=== PATIENT | female | born 1955 | race Two or more races ===

== ENCOUNTER 2019-10-10 13:19 | Inpatient (IN) | payer MEDICAID, OTHER ==
[~2019-10-10] VITALS: Ht 160 cm; Wt 79.4 kg
[2019-10-10] MEDS ORDERED: SODIUM CHLORIDE 0.9% 1,000 ML IVB ONE (15:34)
[2019-10-10] MEDS ORDERED: ONDANSETRON HCL 4 MG/2 ML VIAL IV ONE (16:00)
[2019-10-10 16:12] LABS: Basophils # (auto) 0 uL; Basophils % (auto) 0.5 % (0.0-2.0); Eosinophils # (auto) 0 uL; Eosinophils % (auto) 0.1 % (0.0-7.0); Hematocrit 48.5 % (36.0-46.0); Hemoglobin 16.4 g/dL (12.2-16.2); Lymphocytes # (auto) 1.1 uL; Lymphocytes % (auto) 12.7 % (10.0-50.0); Mean Corpuscular Hemoglobin 29.4 pg (28.0-32.0); Mean Corpuscular Hgb Conc. 33.8 g/dL (32.0-36.0); Mean Corpuscular Volume 87.1 fL (80.0-100.0); Monocytes # (auto) 0.7 uL; Monocytes % (auto) 7.8 % (0.0-12.0); Neutrophils # (auto) 6.7 uL; Neutrophils % (auto) 78.9 % (37.0-80.0); Nucleated Red Blood Cells % 0.2 %; Platelet Count (auto) 107 10^3/uL (140-450); Red Blood Cells 5.56 10^6/uL (4.0-5.20); Red Cell Distribution Width 14.5 % (11.8-14.3); White Blood Cell 8.4 10^3/uL (4.4-10.8)
[2019-10-10 16:23] LABS: Chloride 103 mmol/L (98-107); Salicylate < 1.7 mg/dL (2.8-20.0); Sodium 141 mmol/L (136-145)
[2019-10-10 16:31] LABS: Acetaminophen < 2.0 ug/mL (10-30); Alanine Aminotransferase 51 U/L (13-56); Albumin 4.3 g/dL (3.4-5.0); Alkaline Phosphatase 91 U/L (45-117); Anion Gap 8 (5-15); Aspartate Aminotransferase 92 U/L (15-37); Bilirubin, Total 0.6 mg/dL (0.2-1.0); Blood Alcohol < 3.0 mg/dL (0-5); Blood Urea Nitrogen 10 mg/dL (7-18); Calcium 9.2 mg/dL (8.5-10.1); Carbon Dioxide 30 mmol/L (21-32); GFR African American 25 mL/min; GFR Non-African American 21 mL/min; Glucose 179 mg/dL (74-106); Total Protein 7.8 g/dL (6.4-8.2)
[2019-10-10 16:40] LABS: Potassium 2.7 mmol/L (3.5-5.1)
[2019-10-10] MEDS ORDERED: POTASSIUM CHL 20MEQ/100ML 100 ML IV ONE (19:15)
[2019-10-10] MEDS ORDERED: LORazepam 2MG/ML-1ML VIAL IV PRN (19:45)
[2019-10-10] MEDS ORDERED: ACETAMINOPHEN 500 MG TAB PO PRN (19:45)
[2019-10-10] MEDS ORDERED: IPRATROPIUM BROM 0.5 MG/2.5ML INH SOL NEB PRN (19:45)
[2019-10-10] MEDS ORDERED: NITROGLYCERIN 0.4 MG SL TAB SL PRN (19:45)
[2019-10-10] MEDS ORDERED: ALBUTEROL SULF 2.5 MG/0.5ML(0.5%) NEB SOLN NEB PRN (19:45)
[2019-10-10] MEDS ORDERED: MORPHINE SULF INJ 2 MG/ML SYRINGE 1ML IV PRN ×2 (19:45)
[2019-10-10] MEDS: FOLIC ACID 1 MG, MULTIPLE VITAMIN 10 ML, MAGNESIUM SULF SDV 50% 8 MEQ, THIAMINE INJ 100... INJ SCH ×5 (20:51)
[2019-10-10] MEDS: FAMOTIDINE (10MG/ML) 2ML VL IV SCH (20:51)
[2019-10-10] MEDS: chlordiazePOXIDE HCL 25 MG CAP PO SCH (20:51)
[2019-10-10 22:00] VITALS: BP 109/57
[2019-10-11] MEDS: chlordiazePOXIDE HCL 25 MG CAP PO SCH ×4 (00:29→18:36)
[2019-10-11 01:30] VITALS: BP 109/57
[2019-10-11 02:11] LABS: Amphetamine Screen, Urine NEGATIVE (NEGATIVE); Barbiturate Scree,Urine NEGATIVE (NEGATIVE); Benzodiazephine Screen, Urine NEGATIVE (NEGATIVE); Cannabinoid Screen, Urine POSITIVE (NEGATIVE); Cocaine Screen, Urine NEGATIVE (NEGATIVE); Opiate Scree,Urine NEGATIVE (NEGATIVE); Phencyclidine Screen, Urine NEGATIVE (NEGATIVE)
[2019-10-11] MEDS: ONDANSETRON HCL 4 MG/2 ML VIAL IV PRN ×2 (03:22→11:04)
[2019-10-11 05:31] VITALS: BP 110/49
[2019-10-11 06:17] LABS: BUN/Creatinine Ratio 5.1; Calcium 7.7 mg/dL (8.5-10.1); Magnesium 2.8 mg/dL (1.6-2.6)
[2019-10-11 06:19] LABS: Potassium 2.7 mmol/L (3.5-5.1)
[2019-10-11] MEDS ORDERED: POTASSIUM CHL 20 Meq TABLET PO ONE (06:45)
[2019-10-11 09:00] VITALS: BP 106/60
[2019-10-11] MEDS ORDERED: SOD CHL 0.9%/ KCL 40MEQ 1,000 ML IV ONE (10:15)
[2019-10-11] MEDS ORDERED: POTASSIUM EFFERVESENT TAB 25 MEQ PO ONE (10:15)
[2019-10-11] MEDS: FAMOTIDINE (10MG/ML) 2ML VL IV SCH (11:03)
[2019-10-11] MEDS: FOLIC ACID 1 MG, MULTIPLE VITAMIN 10 ML, MAGNESIUM SULF SDV 50% 8 MEQ, THIAMINE INJ 100... INJ SCH ×5 (12:00)
[2019-10-11 13:00] VITALS: BP 105/59
[2019-10-11] MEDS ORDERED: SODIUM CHLORIDE 0.9% 1,000 ML IV SCH (15:30)
[2019-10-11 16:09] LABS: Potassium 4.2 mmol/L (3.5-5.1)
[2019-10-11 16:11] LABS: BUN/Creatinine Ratio 5.2
[2019-10-11 17:00] VITALS: BP 112/75
[2019-10-11] MEDS: SOD CHL 0.45% 1,000 ML IV SCH (18:37)
[2019-10-11 22:05] VITALS: BP 112/66
[2019-10-12] MEDS: chlordiazePOXIDE HCL 25 MG CAP PO SCH ×4 (05:23→16:59)
[2019-10-12 05:31] VITALS: BP 104/67
[2019-10-12 06:29] LABS: Basophils # (auto) 0 uL; Basophils % (auto) 0.5 % (0.0-2.0); Eosinophils # (auto) 0 uL; Eosinophils % (auto) 1.2 % (0.0-7.0); Hematocrit 35.3 % (36.0-46.0); Hemoglobin 11.9 g/dL (12.2-16.2); Lymphocytes # (auto) 1.2 uL; Lymphocytes % (auto) 35.9 % (10.0-50.0); Mean Corpuscular Hemoglobin 29.5 pg (28.0-32.0); Mean Corpuscular Hgb Conc. 33.7 g/dL (32.0-36.0); Mean Corpuscular Volume 87.5 fL (80.0-100.0); Monocytes # (auto) 0.3 uL; Monocytes % (auto) 10.1 % (0.0-12.0); Neutrophils # (auto) 1.7 uL; Neutrophils % (auto) 52.3 % (37.0-80.0); Nucleated Red Blood Cells % 0.1 %; Platelet Count (auto) 92 10^3/uL (140-450); Red Blood Cells 4.03 10^6/uL (4.0-5.20); Red Cell Distribution Width 14.5 % (11.8-14.3); White Blood Cell 3.3 10^3/uL (4.4-10.8)
[2019-10-12 06:58] LABS: Potassium 3.2 mmol/L (3.5-5.1)
[2019-10-12 07:11] LABS: Albumin 2.6 g/dL (3.4-5.0); BUN/Creatinine Ratio 5.7; Bilirubin, Total 0.3 mg/dL (0.2-1.0); Calcium 7.7 mg/dL (8.5-10.1); Magnesium 2.4 mg/dL (1.6-2.6); Total Protein 5.2 g/dL (6.4-8.2)
[2019-10-12 09:00] VITALS: BP 116/76
[2019-10-12] MEDS: FAMOTIDINE (10MG/ML) 2ML VL IV SCH (09:22)
[2019-10-12 09:24] LABS: Hepatitis B Surface Antibody Negative
[2019-10-12] MEDS ORDERED: POTASSIUM CHL 20 Meq TABLET PO ONE (09:30)
[2019-10-12 09:54] LABS: Hepatitis A Total Antibody Positive
[2019-10-12 11:33] LABS: Hepatitis B Core Total AB Negative; Hepatitis B Surface Antigen Negative (Negative); Hepatitis C Antibody Negative (Negative)
[2019-10-12] MEDS: FOLIC ACID 1 MG, MULTIPLE VITAMIN 10 ML, MAGNESIUM SULF SDV 50% 8 MEQ, THIAMINE INJ 100... INJ SCH ×5 (12:08)
[2019-10-12 13:00] VITALS: BP 120/70
[2019-10-12] MEDS: SOD CHL 0.45% 1,000 ML IV SCH (13:45)
[2019-10-12] MEDS ORDERED: SERTRALINE HCL 50 MG TAB PO ONE (15:45)
[2019-10-12] MEDS: HYDROcodone-ACET 5/325MG TAB PO PRN (18:42)
[2019-10-12 22:00] VITALS: BP 116/77
[2019-10-13 05:23] VITALS: BP 130/88
[2019-10-13] MEDS: chlordiazePOXIDE HCL 25 MG CAP PO SCH ×4 (05:37→17:57)
[2019-10-13] MEDS: LEVOTHYROXINE SODIUM 25 MCG TAB PO SCH (05:37)
[2019-10-13 06:00] LABS: Basophils # (auto) 0 uL; Basophils % (auto) 0.6 % (0.0-2.0); Eosinophils # (auto) 0.1 uL; Eosinophils % (auto) 2.9 % (0.0-7.0); Hematocrit 37.1 % (36.0-46.0); Hemoglobin 12.3 g/dL (12.2-16.2); Lymphocytes # (auto) 1.4 uL; Lymphocytes % (auto) 40.2 % (10.0-50.0); Mean Corpuscular Hemoglobin 29.1 pg (28.0-32.0); Mean Corpuscular Hgb Conc. 33.2 g/dL (32.0-36.0); Mean Corpuscular Volume 87.4 fL (80.0-100.0); Monocytes # (auto) 0.3 uL; Monocytes % (auto) 10.1 % (0.0-12.0); Neutrophils # (auto) 1.6 uL; Neutrophils % (auto) 46.2 % (37.0-80.0); Nucleated Red Blood Cells % 0.2 %; Platelet Count (auto) 106 10^3/uL (140-450); Red Blood Cells 4.24 10^6/uL (4.0-5.20); Red Cell Distribution Width 14.9 % (11.8-14.3); White Blood Cell 3.4 10^3/uL (4.4-10.8)
[2019-10-13 06:22] LABS: Albumin 2.6 g/dL (3.4-5.0); Calcium 7.7 mg/dL (8.5-10.1); Potassium 3.7 mmol/L (3.5-5.1)
[2019-10-13 06:26] LABS: BUN/Creatinine Ratio 7.4; Bilirubin, Total 0.3 mg/dL (0.2-1.0); Total Protein 5.4 g/dL (6.4-8.2)
[2019-10-13 09:03] VITALS: BP 138/78
[2019-10-13] MEDS: SERTRALINE HCL 50 MG TAB PO SCH (10:14)
[2019-10-13] MEDS: FAMOTIDINE (10MG/ML) 2ML VL IV SCH (10:14)
[2019-10-13] MEDS: SOD CHL 0.45% 1,000 ML IV SCH (10:15)
[2019-10-13] MEDS ORDERED: SERT25TA84 PO (11:00)
[2019-10-13] MEDS ORDERED: LEV25T PO (11:00)
[2019-10-13] MEDS: FOLIC ACID 1 MG, MULTIPLE VITAMIN 10 ML, MAGNESIUM SULF SDV 50% 8 MEQ, THIAMINE INJ 100... INJ SCH ×5 (12:00)
[2019-10-13 13:00] VITALS: BP 132/91
[2019-10-13 17:15] VITALS: BP 116/85
[2019-10-13 21:56] VITALS: BP 121/71
[2019-10-13 22:21] VITALS: BP 121/71
[2019-10-14] VITALS (7 sets, daily range): BP systolic 114–126; BP diastolic 74–86
[2019-10-14] MEDS: SOD CHL 0.45% 1,000 ML IV SCH (05:45)
[2019-10-14] MEDS: chlordiazePOXIDE HCL 25 MG CAP PO SCH ×5 (05:57→23:47)
[2019-10-14] MEDS: LEVOTHYROXINE SODIUM 25 MCG TAB PO SCH (06:48)
[2019-10-14] MEDS: FAMOTIDINE (10MG/ML) 2ML VL IV SCH (09:48)
[2019-10-14] MEDS: SERTRALINE HCL 50 MG TAB PO SCH (09:49)
[2019-10-14] MEDS: ONDANSETRON HCL 4 MG/2 ML VIAL IV PRN (09:49)
[2019-10-14] MEDS: HYDROcodone-ACET 5/325MG TAB PO PRN (09:49)
[2019-10-14] MEDS ORDERED: LORazepam 2MG/ML-1ML VIAL IV PRN (12:00)
[2019-10-14] MEDS: FOLIC ACID 1 MG, MULTIPLE VITAMIN 10 ML, MAGNESIUM SULF SDV 50% 8 MEQ, THIAMINE INJ 100... INJ SCH ×5 (12:31)
[2019-10-14 15:49] LABS: Urine Bacteria MOD /hpf (None Seen); Urine Blood Negative /uL (Negative); Urine Mucus FEW (None Seen); Urine Specific Gravity 1.016 (1.001-1.035); Urine WBC 21 /hpf (0 - 5)
[2019-10-14] MEDS: SODIUM CHLORIDE 0.9% 1,000 ML IV SCH (22:52)
[2019-10-15 05:00] VITALS: BP 125/81
[2019-10-15 05:27] LABS: Basophils # (auto) 0 uL; Basophils % (auto) 0.9 % (0.0-2.0); Eosinophils # (auto) 0.1 uL; Eosinophils % (auto) 1.9 % (0.0-7.0); Hematocrit 39.7 % (36.0-46.0); Hemoglobin 13.1 g/dL (12.2-16.2); Lymphocytes # (auto) 1.5 uL; Lymphocytes % (auto) 41.9 % (10.0-50.0); Mean Corpuscular Hemoglobin 29.2 pg (28.0-32.0); Mean Corpuscular Hgb Conc. 33.1 g/dL (32.0-36.0); Mean Corpuscular Volume 88.4 fL (80.0-100.0); Monocytes # (auto) 0.6 uL; Monocytes % (auto) 16.2 % (0.0-12.0); Neutrophils # (auto) 1.4 uL; Neutrophils % (auto) 39.1 % (37.0-80.0); Nucleated Red Blood Cells % 0.3 %; Platelet Count (auto) 171 10^3/uL (140-450); Red Blood Cells 4.49 10^6/uL (4.0-5.20); Red Cell Distribution Width 15.1 % (11.8-14.3); White Blood Cell 3.5 10^3/uL (4.4-10.8)
[2019-10-15] MEDS: SODIUM CHLORIDE 0.9% 1,000 ML IV SCH ×2 (05:28→16:16)
[2019-10-15 05:43] LABS: Albumin 2.7 g/dL (3.4-5.0); Calcium 8.1 mg/dL (8.5-10.1); Magnesium 2.2 mg/dL (1.6-2.6); Potassium 3.9 mmol/L (3.5-5.1)
[2019-10-15 05:46] LABS: BUN/Creatinine Ratio 16.4; Bilirubin, Total 0.2 mg/dL (0.2-1.0); Phosphorus 3.5 mg/dL (2.5-4.90)
[2019-10-15] MEDS: chlordiazePOXIDE HCL 25 MG CAP PO SCH ×4 (06:09→17:51)
[2019-10-15] MEDS: LEVOTHYROXINE SODIUM 25 MCG TAB PO SCH (06:09)
[2019-10-15 09:00] VITALS: BP 133/77
[2019-10-15] MEDS: ENOXAPARIN SOD 40 MG/0.4 ML SYRINGE SC SCH (09:25)
[2019-10-15] MEDS: FAMOTIDINE (10MG/ML) 2ML VL IV SCH (09:25)
[2019-10-15] MEDS: SERTRALINE HCL 50 MG TAB PO SCH (09:26)
[2019-10-15] MEDS: FOLIC ACID 1 MG, MULTIPLE VITAMIN 10 ML, MAGNESIUM SULF SDV 50% 8 MEQ, THIAMINE INJ 100... INJ SCH ×5 (16:16)
[2019-10-15 17:08] VITALS: BP 110/73
[2019-10-15 20:00] VITALS: BP 119/73
[2019-10-15 21:49] VITALS: BP 119/73
[2019-10-16] MEDS: SODIUM CHLORIDE 0.9% 1,000 ML IV SCH ×2 (03:00→13:00)
[2019-10-16 05:14] VITALS: BP 133/85
[2019-10-16] MEDS: chlordiazePOXIDE HCL 25 MG CAP PO SCH ×3 (05:53→11:30)
[2019-10-16] MEDS: LEVOTHYROXINE SODIUM 25 MCG TAB PO SCH (06:53)
[2019-10-16] MEDS: FAMOTIDINE (10MG/ML) 2ML VL IV SCH (09:03)
[2019-10-16] MEDS: ENOXAPARIN SOD 40 MG/0.4 ML SYRINGE SC SCH (09:03)
[2019-10-16] MEDS: SERTRALINE HCL 50 MG TAB PO SCH (09:04)
[2019-10-16 09:28] VITALS: BP 135/89
[2019-10-16] MEDS: FOLIC ACID 1 MG, MULTIPLE VITAMIN 10 ML, MAGNESIUM SULF SDV 50% 8 MEQ, THIAMINE INJ 100... INJ SCH ×5 (12:00)
[2019-10-16 12:43] VITALS: BP 131/83
== END 2019-10-16 16:03 | disposition home or self-care (01) | DRG 469 ==
LOC: ER 13:19 → TELE 13:20 → TELE-WESTW 21:41
PROVIDERS: ADMIT Nurse Practitioner Acute Care; ATTEND Internal Medicine Nephrology
DX: N17.0 Acute kidney failure with tubular necrosis (principal); F10.231 Alcohol dependence with withdrawal delirium; D69.6 Thrombocytopenia, unspecified; R45.851 Suicidal ideations; E86.0 Dehydration; N18.3 Chronic kidney disease, stage 3 (moderate); E87.6 Hypokalemia; F32.9 Major depressive disorder, single episode, unspecified; E03.9 Hypothyroidism, unspecified; R73.03 Prediabetes; I12.9 Hypertensive chronic kidney disease with stage 1 through stage 4 chronic kidney disease, or unspecified chronic kidney disease; F12.10 Cannabis abuse, uncomplicated; F17.200 Nicotine dependence, unspecified, uncomplicated; Z90.49 Acquired absence of other specified parts of digestive tract; Z90.710 Acquired absence of both cervix and uterus; Z82.49 Family history of ischemic heart disease and other diseases of the circulatory system
CPT/HCPCS: 36415; 70450; 80048; 80053; 80061; 80307; 80320; 80329; 81001; 82962; 83036; 83735; 84100; 84439; 84443; 85025; 86704; 86706; 86708; 86803; 87045; 87340; 87427; 93005; 96361; 96365; 96375; 97116; 97530; G0378; J2405; J3480; J3490

== ENCOUNTER 2020-12-18 12:30 | Inpatient (IN) | payer OTHER, MEDICAID ==
[~2020-12-18] VITALS: Ht 160 cm; Wt 82.4 kg
[~2020-12-18 12:30] MED LIST: LEV25T PO; SERT25TA84 PO
[2020-12-18] MEDS ORDERED: SODIUM CHLORIDE 0.9% 1,000 ML IVB ONE (13:15)
[2020-12-18] MEDS ORDERED: ONDANSETRON HCL 4 MG/2 ML VIAL IV ONE ×2 (13:15→16:00)
[2020-12-18] MEDS ORDERED: TETANUS-DIPTH-ACEL PERTUSSIS 0.5ML SYR Tdap IM ONE (14:45)
[2020-12-18 14:51] LABS: Hematocrit 42.2 % (36.0-46.0); Hemoglobin 14.2 g/dL (12.2-16.2); Mean Corpuscular Hgb Conc. 33.6 g/dL (32.0-36.0); Mean Corpuscular Volume 86.3 fL (80.0-100.0); Platelet Count (auto) 207 10^3/uL (140-450); Red Blood Cells 4.89 10^6/uL (4.0-5.20); Red Cell Distribution Width 13.8 % (11.8-14.3); White Blood Cell 4.3 10^3/uL (4.4-10.8)
[2020-12-18 14:59] LABS: Basophils % (manual) 0 (0.0-2.0); Blast Cells 0; Eosinophils % (manual) 0 (0-7); Myelocytes % 0; Promyelocytes % 0; Reactive Lymphocytes 0
[2020-12-18 15:00] LABS: Alanine Aminotransferase 29 U/L (13-56); Albumin 2.1 g/dL (3.4-5.0); Anion Gap 14 (5-15); Aspartate Aminotransferase 31 U/L (15-37); Blood Urea Nitrogen 41 mg/dL (7-18); Calcium 7.7 mg/dL (8.5-10.1); Carbon Dioxide 21 mmol/L (21-32); Chloride 100 mmol/L (98-107); GFR African American 71 mL/min; GFR Non-African American 59 mL/min; Glucose 153 mg/dL (74-106); Magnesium 2.3 mg/dL (1.6-2.6); Potassium 3.6 mmol/L (3.5-5.1); Sodium 135 mmol/L (136-145)
[2020-12-18 15:03] LABS: Alkaline Phosphatase 62 U/L (45-117); Bilirubin, Total 0.5 mg/dL (0.2-1.0); Total Protein 5.9 g/dL (6.4-8.2)
[2020-12-18 15:09] LABS: Blood Alcohol < 3.0 mg/dL (0-5); Lipase 1278 U/L (73-393)
[2020-12-18 15:40] LABS: Band Neutrophils % (manual) 12; Lymphocytes % (manual) 26 (10.0-50.0); Metamyelocytes % 1; Monocytes % (manual) 18 (0-12)
[2020-12-18] MEDS ORDERED: MORPHINE SULF INJ 2 MG/ML SYRINGE 1ML IV ONE (16:00)
[2020-12-18] MEDS ORDERED: MORPHINE SULF INJ 2 MG/ML SYRINGE 1ML IV PRN (18:00)
[2020-12-18] MEDS: FOLIC ACID 1 MG, MULTIPLE VITAMIN 10 ML, MAGNESIUM SULF SDV 50% 8 MEQ, THIAMINE INJ 100... INJ SCH ×5 (18:00)
[2020-12-18] MEDS ORDERED: NITROGLYCERIN 0.4 MG SL TAB SL PRN (18:00)
[2020-12-18] MEDS ORDERED: ACETAMINOPHEN 500 MG TAB PO PRN (18:00)
[2020-12-18 20:10] VITALS: BP 110/62
[2020-12-18 21:03] LABS: Alcohol, Urine < 3.0 mg/dL (0-10); Amphetamine Screen, Urine NEGATIVE (NEGATIVE); Barbiturate Scree,Urine NEGATIVE (NEGATIVE); Benzodiazephine Screen, Urine NEGATIVE (NEGATIVE); Cannabinoid Screen, Urine NEGATIVE (NEGATIVE); Cocaine Screen, Urine NEGATIVE (NEGATIVE); Opiate Scree,Urine NEGATIVE (NEGATIVE); Phencyclidine Screen, Urine NEGATIVE (NEGATIVE)
[2020-12-18 21:10] LABS: Urine Bacteria MANY /hpf (None Seen); Urine Blood Negative /uL (Negative); Urine Mucus FEW (None Seen); Urine Specific Gravity 1.022 (1.001-1.035); Urine WBC 2 /hpf (0 - 5)
[2020-12-18 22:00] VITALS: BP 110/62
[2020-12-18] MEDS: HYDROcodone-ACET 5/325MG TAB PO PRN (22:53)
[2020-12-19 04:49] VITALS: BP 100/55
[2020-12-19 07:07] LABS: Hematocrit 36.6 % (36.0-46.0); Hemoglobin 12.6 g/dL (12.2-16.2); Mean Corpuscular Hemoglobin 29.3 pg (28.0-32.0); Mean Corpuscular Hgb Conc. 34.3 g/dL (32.0-36.0); Mean Corpuscular Volume 85.5 fL (80.0-100.0); Platelet Count (auto) 181 10^3/uL (140-450); Red Blood Cells 4.28 10^6/uL (4.0-5.20); Red Cell Distribution Width 13.8 % (11.8-14.3); White Blood Cell 4.7 10^3/uL (4.4-10.8)
[2020-12-19 07:20] LABS: Albumin 1.9 g/dL (3.4-5.0); Calcium 7.8 mg/dL (8.5-10.1); Potassium 3.4 mmol/L (3.5-5.1)
[2020-12-19 07:24] LABS: BUN/Creatinine Ratio 31.4; Bilirubin, Total 0.6 mg/dL (0.2-1.0); Total Protein 5.2 g/dL (6.4-8.2)
[2020-12-19 07:25] LABS: Basophils % (manual) 0 (0.0-2.0); Blast Cells 0; Promyelocytes % 0
[2020-12-19 08:09] LABS: Band Neutrophils % (manual) 12; Lymphocytes % (manual) 26 (10.0-50.0)
[2020-12-19 08:10] LABS: Eosinophils % (manual) 3 (0-7); Metamyelocytes % 1; Monocytes % (manual) 33 (0-12); Myelocytes % 2; Reactive Lymphocytes 2
[2020-12-19] MEDS: HYDROcodone-ACET 5/325MG TAB PO PRN ×3 (08:23→22:02)
[2020-12-19 09:00] VITALS: BP 99/53
[2020-12-19] MEDS: cefTRIAXone 1GM/50ML D5W 50 ML IV SCH (09:14)
[2020-12-19] MEDS ORDERED: VANCOMYCIN PER PHARMACY 0 MG IV SCH (12:15)
[2020-12-19 12:38] VITALS: BP 114/57
[2020-12-19] MEDS: FOLIC ACID 1 MG, MULTIPLE VITAMIN 10 ML, MAGNESIUM SULF SDV 50% 8 MEQ, THIAMINE INJ 100... INJ SCH ×5 (12:42)
[2020-12-19] MEDS: VANCOMYCIN 1GM/250ML 250 ML IV SCH (13:19)
[2020-12-19 17:03] VITALS: BP 83/59
[2020-12-19 22:00] VITALS: BP 102/58
[2020-12-20] MEDS: VANCOMYCIN 1GM/250ML 250 ML IV SCH ×2 (04:47→21:00)
[2020-12-20 05:00] VITALS: BP 110/55
[2020-12-20] MEDS: cefTRIAXone 1GM/50ML D5W 50 ML IV SCH (08:34)
[2020-12-20 08:47] VITALS: BP 92/42
[2020-12-20] MEDS: ONDANSETRON HCL 4 MG/2 ML VIAL IV PRN ×2 (11:41→22:12)
[2020-12-20] MEDS: MORPHINE SULF INJ 2 MG/ML SYRINGE 1ML IV PRN ×2 (11:41→22:12)
[2020-12-20] MEDS: FOLIC ACID 1 MG, MULTIPLE VITAMIN 10 ML, MAGNESIUM SULF SDV 50% 8 MEQ, THIAMINE INJ 100... INJ SCH ×5 (12:12)
[2020-12-20 13:00] VITALS: BP 92/59
[2020-12-20 16:00] VITALS: BP 94/48
[2020-12-20 22:00] VITALS: BP 97/53
[2020-12-21 05:00] VITALS: BP 110/57
[2020-12-21 08:00] VITALS: BP 114/52
[2020-12-21 08:51] VITALS: BP 114/52
[2020-12-21] MEDS: cefTRIAXone 1GM/50ML D5W 50 ML IV SCH (09:19)
[2020-12-21] MEDS: ONDANSETRON HCL 4 MG/2 ML VIAL IV PRN (11:32)
[2020-12-21] MEDS: MORPHINE SULF INJ 2 MG/ML SYRINGE 1ML IV PRN (11:33)
[2020-12-21] MEDS: VANCOMYCIN 1GM/250ML 250 ML IV SCH (12:55)
[2020-12-21] MEDS: FOLIC ACID 1 MG, MULTIPLE VITAMIN 10 ML, MAGNESIUM SULF SDV 50% 8 MEQ, THIAMINE INJ 100... INJ SCH ×5 (13:58)
[2020-12-21 16:50] VITALS: BP 98/58
[2020-12-21 22:11] VITALS: BP 98/51
[2020-12-22 05:17] VITALS: BP 91/45
[2020-12-22] MEDS: VANCOMYCIN 1GM/250ML 250 ML IV SCH (06:59)
[2020-12-22 08:00] VITALS: BP 95/57
[2020-12-22] MEDS: cefTRIAXone 1GM/50ML D5W 50 ML IV SCH (08:36)
[2020-12-22 09:00] VITALS: BP 98/66
[2020-12-22] MEDS ORDERED: levoFLOXacin 500MG 100 ML IV ONE (10:15)
[2020-12-22] MEDS: D5W/SOD CHLO 0.9% 1,000 ML IV SCH ×2 (10:43→18:19)
[2020-12-22 13:00] VITALS: BP 101/53
[2020-12-22] MEDS: FOLIC ACID 1 MG, MULTIPLE VITAMIN 10 ML, THIAMINE INJ 100 MG in D5W 5% 1,000 ML INJ SCH (14:04)
[2020-12-22 17:00] VITALS: BP 98/69
[2020-12-22 22:22] VITALS: BP 106/69
[2020-12-22] MEDS: MORPHINE SULF INJ 2 MG/ML SYRINGE 1ML IV PRN (22:36)
[2020-12-22] MEDS: ONDANSETRON HCL 4 MG/2 ML VIAL IV PRN (22:36)
[2020-12-23 05:15] VITALS: BP 98/70
[2020-12-23] MEDS: D5W/SOD CHLO 0.9% 1,000 ML IV SCH ×3 (06:03→17:24)
[2020-12-23] MEDS: levoFLOXacin 500MG 100 ML IV SCH (08:53)
[2020-12-23] MEDS: MORPHINE SULF INJ 2 MG/ML SYRINGE 1ML IV PRN ×2 (08:53→15:21)
[2020-12-23 09:00] VITALS: BP 103/75
[2020-12-23] MEDS: FOLIC ACID 1 MG, MULTIPLE VITAMIN 10 ML, THIAMINE INJ 100 MG in D5W 5% 1,000 ML INJ SCH (12:00)
[2020-12-23 13:00] VITALS: BP 103/61
[2020-12-23 16:40] VITALS: BP 100/63
[2020-12-23] MEDS ORDERED: VANCOMYCIN 1GM/250ML 250 ML IV SCH (20:00)
[2020-12-23] MEDS: metroNIDAZOLE 500MG/100ML 100 ML IV SCH (21:21)
[2020-12-23] MEDS: PANTOPRAZOLE 40 MG TAB PO SCH (21:21)
[2020-12-23 22:00] VITALS: BP 97/59
[2020-12-23] MEDS: HYDROcodone-ACET 5/325MG TAB PO PRN (23:43)
[2020-12-24] MEDS: D5W/SOD CHLO 0.9% 1,000 ML IV SCH ×3 (02:15→18:15)
[2020-12-24 05:00] VITALS: BP 98/64
[2020-12-24] MEDS: metroNIDAZOLE 500MG/100ML 100 ML IV SCH ×3 (05:31→21:42)
[2020-12-24 09:00] VITALS: BP 101/62
[2020-12-24] MEDS: PANTOPRAZOLE 40 MG TAB PO SCH ×2 (10:32→21:42)
[2020-12-24] MEDS: levoFLOXacin 500MG 100 ML IV SCH (10:32)
[2020-12-24] MEDS: MORPHINE SULF INJ 2 MG/ML SYRINGE 1ML IV PRN ×3 (10:47→22:51)
[2020-12-24] MEDS: FOLIC ACID 1 MG, MULTIPLE VITAMIN 10 ML, THIAMINE INJ 100 MG in D5W 5% 1,000 ML INJ SCH (12:00)
[2020-12-24 13:00] VITALS: BP 93/59
[2020-12-24 14:15] VITALS: BP 93/59
[2020-12-24 17:00] VITALS: BP 94/53
[2020-12-24 21:56] VITALS: BP 102/60
[2020-12-25] MEDS: MORPHINE SULF INJ 2 MG/ML SYRINGE 1ML IV PRN ×4 (03:41→22:20)
[2020-12-25] MEDS: D5W/SOD CHLO 0.9% 1,000 ML IV SCH ×3 (03:47→18:15)
[2020-12-25 05:30] VITALS: BP 99/65
[2020-12-25] MEDS: metroNIDAZOLE 500MG/100ML 100 ML IV SCH ×3 (06:02→22:21)
[2020-12-25 09:00] VITALS: BP 99/61
[2020-12-25] MEDS: levoFLOXacin 500MG 100 ML IV SCH (10:12)
[2020-12-25] MEDS: PANTOPRAZOLE 40 MG TAB PO SCH ×2 (10:12→22:20)
[2020-12-25] MEDS: FOLIC ACID 1 MG, MULTIPLE VITAMIN 10 ML, THIAMINE INJ 100 MG in D5W 5% 1,000 ML INJ SCH (12:50)
[2020-12-25 13:00] VITALS: BP 104/61
[2020-12-25] MEDS: AMOXICILLIN TRIHYDRATE 250 MG CAP PO SCH ×2 (14:55→22:20)
[2020-12-25 16:38] VITALS: BP 103/70
[2020-12-25 22:01] VITALS: BP 112/74
[2020-12-26 05:22] VITALS: BP 109/59
[2020-12-26] MEDS: metroNIDAZOLE 500MG/100ML 100 ML IV SCH ×2 (06:55→14:09)
[2020-12-26] MEDS: D5W/SOD CHLO 0.9% 1,000 ML IV SCH ×2 (06:55→09:52)
[2020-12-26] MEDS: AMOXICILLIN TRIHYDRATE 250 MG CAP PO SCH ×2 (06:56→14:09)
[2020-12-26] MEDS: MORPHINE SULF INJ 2 MG/ML SYRINGE 1ML IV PRN ×2 (08:14→16:30)
[2020-12-26 09:00] VITALS: BP 100/64
[2020-12-26] MEDS: levoFLOXacin 500MG 100 ML IV SCH (09:51)
[2020-12-26] MEDS: PANTOPRAZOLE 40 MG TAB PO SCH (09:52)
[2020-12-26] MEDS: FOLIC ACID 1 MG, MULTIPLE VITAMIN 10 ML, THIAMINE INJ 100 MG in D5W 5% 1,000 ML INJ SCH (12:08)
[2020-12-26 13:00] VITALS: BP 104/60
[2020-12-26 16:46] VITALS: BP 118/77
== END 2020-12-26 19:10 | disposition home health service (06) | DRG 871 ==
LOC: EDBD 12:30 → ER 12:30 → TELE 17:59 → TELE-CENTR 20:10
PROVIDERS: ADMIT Nurse Practitioner Acute Care; ATTEND Family Medicine
DX: A41.52 Sepsis due to Pseudomonas (principal); K85.20 Alcohol induced acute pancreatitis without necrosis or infection; L03.115 Cellulitis of right lower limb; K57.32 Diverticulitis of large intestine without perforation or abscess without bleeding; E44.0 Moderate protein-calorie malnutrition; Z20.822 Contact with and (suspected) exposure to COVID-19; S73.101A Unspecified sprain of right hip, initial encounter; F32.9 Major depressive disorder, single episode, unspecified; E66.9 Obesity, unspecified; F41.9 Anxiety disorder, unspecified; F19.10 Other psychoactive substance abuse, uncomplicated; K20.90 Esophagitis, unspecified without bleeding; E03.9 Hypothyroidism, unspecified; B96.1 Klebsiella pneumoniae [K. pneumoniae] as the cause of diseases classified elsewhere; E86.0 Dehydration; E87.6 Hypokalemia; W18.39XA Other fall on same level, initial encounter; S70.211A Abrasion, right hip, initial encounter; Z68.31 Body mass index [BMI] 31.0-31.9, adult; Y93.89 Activity, other specified; Z72.89 Other problems related to lifestyle; Y92.89 Other specified places as the place of occurrence of the external cause; Y99.8 Other external cause status; Z79.899 Other long term (current) drug therapy; Z82.49 Family history of ischemic heart disease and other diseases of the circulatory system; Z90.710 Acquired absence of both cervix and uterus
CPT/HCPCS: 36415; 70450; 71045; 72192; 74176; 80053; 80061; 80202; 80307; 80320; 81001; 82550; 82565; 83690; 83735; 84484; 85007; 85027; 87040; 87077; 87186; 87205; 87426; 90715; 93005; 96361; 96374; 96375; 96376; G0378; J0696; J1956; J2405; J3490; J7042

== ENCOUNTER 2021-08-29 14:27 | Inpatient (IN) | payer OTHER, MEDICAID ==
[~2021-08-29] VITALS: Ht 160 cm; Wt 84.2 kg
[2021-08-29] MEDS ORDERED: PROCHLORPERAZINE EDISYLATE 5 MG/ML 2ML VIAL IV ONE (14:45)
[2021-08-29] MEDS ORDERED: PANTOPRAZOLE 40 MG/10 ML VIAL INJ IV ONE ×2 (14:45→19:15)
[2021-08-29] MEDS ORDERED: LORazepam 2MG/ML-1ML VIAL IV ONE (15:00)
[2021-08-29 16:15] LABS: Basophils # (auto) 0 10 ^3/uL (0-0.2); Basophils % (auto) 0.9 % (0.0-2.0); Eosinophils # (auto) 0 10 ^3/uL (0-0.8); Hematocrit 39.7 % (36.0-46.0); Hemoglobin 13.2 g/dL (12.2-16.2); Lymphocytes # (auto) 0.9 10 ^3/uL (0.4-5.4); Lymphocytes % (auto) 16.8 % (10.0-50.0); Mean Corpuscular Hemoglobin 28.8 pg (28.0-32.0); Mean Corpuscular Hgb Conc. 33.3 g/dL (32.0-36.0); Mean Corpuscular Volume 86.3 fL (80.0-100.0); Monocytes # (auto) 0.3 10 ^3/uL (0-1.3); Monocytes % (auto) 5.3 % (0.0-12.0); Neutrophils # (auto) 4.1 10 ^3/uL (1.6-8.6); Nucleated Red Blood Cells % 0.1 %; Red Cell Distribution Width 17.8 % (11.8-14.3); White Blood Cell 5.4 10^3/uL (4.4-10.8)
[2021-08-29 16:33] LABS: Albumin 3.8 g/dL (3.4-5.0); Calcium 8.2 mg/dL (8.5-10.1); Magnesium 2.4 mg/dL (1.6-2.6); Potassium 3.4 mmol/L (3.5-5.1)
[2021-08-29 16:37] LABS: BUN/Creatinine Ratio 4.7; Bilirubin, Total 0.5 mg/dL (0.2-1.0); Total Protein 7.3 g/dL (6.4-8.2)
[2021-08-29] MEDS ORDERED: MORPHINE SULFATE INJECTION 2 MG/ML SYRG IV PRN ×2 (18:45→19:30)
[2021-08-29] MEDS ORDERED: NITROGLYCERIN 0.4 MG SL TAB SL PRN ×2 (18:45→19:30)
[2021-08-29] MEDS ORDERED: THIAMINE 100mg/ml INJ (200mg/2ml VIAL) IV ONE (18:45)
[2021-08-29] MEDS ORDERED: POTASSIUM CHL 20MEQ/50ML 50 ML IV ONE (18:45)
[2021-08-29] MEDS ORDERED: cefTRIAXone 1GM/50ML D5W 50 ML IV ONE (19:15)
[2021-08-29] MEDS ORDERED: SODIUM CHLORIDE 0.9% 1,000 ML IV ONE (19:15)
[2021-08-29] MEDS ORDERED: metroNIDAZOLE 500MG/100ML 100 ML IV ONE (19:15)
[2021-08-29] MEDS ORDERED: SUCRALFATE 1 GM/10 ML ORAL SUSP PO ONE (19:15)
[2021-08-29] MEDS ORDERED: FOLIC ACID 1 MG TAB PO ONE (19:15)
[2021-08-29] MEDS ORDERED: PANCREATIC ENZYMES 4200 UNIT CAP PO ONE (19:15)
[2021-08-29] MEDS ORDERED: MULTIPLE VITAMINS W/ MINERALS TAB PO ONE (19:15)
[2021-08-29] MEDS ORDERED: DOCUSATE SOD 100 MG CAP PO PRN (19:30)
[2021-08-29] MEDS: SODIUM CHLORIDE 0.9% 1,000 ML IV SCH (19:30)
[2021-08-29] MEDS ORDERED: ALUM & MAG HYDROX-SIMETH LIQ(MAALOX) 30 ML PO PRN (19:30)
[2021-08-29] MEDS ORDERED: SODIUM CHLORIDE 0.9% 1,000 ML IV SCH (19:30)
[2021-08-29] MEDS ORDERED: DEXTROSE (50%) 50ML SYRG IV PRN (19:30)
[2021-08-29 21:34] LABS: Cholesterol 282 mg/dL (< 200); HDL Cholesterol 125 mg/dL (40-59); LDL Cholesterol 124 mg/dL (< 100); Triglycerides 91 mg/dL (< 150)
[2021-08-29] MEDS: chlordiazePOXIDE HCL 25 MG CAP PO SCH (21:47)
[2021-08-29] MEDS: D5W/ SOD CHL 0.9%/KCL 20MEQ 1,000 ML IV SCH (21:47)
[2021-08-29] MEDS: SUCRALFATE 1 GM/10 ML ORAL SUSP PO SCH (21:48)
[2021-08-29] MEDS: ATORVASTATIN 20 MG TAB PO SCH (21:49)
[2021-08-29] MEDS: METOCLOPRAMIDE HCL 5MG/ml INJ 2ml VIAL IV PRN (21:52)
[2021-08-29] MEDS: MORPHINE SULFATE INJECTION 2 MG/ML SYRG IV PRN (21:52)
[2021-08-29] MEDS: InsuLIN REG 1unit/0.01ml Soln (100units/ml) SC SCH (22:00)
[2021-08-29 23:00] VITALS: BP 128/68
[2021-08-29] MEDS: metroNIDAZOLE 500MG/100ML 100 ML IV SCH (23:46)
[2021-08-29 23:56] VITALS: BP 128/68
[2021-08-30] MEDS: ACCU-CHEK COMFORT CURVE STRIP VI SCH ×5 (00:09→22:03)
[2021-08-30] MEDS ORDERED: PANT40T PO (00:34)
[2021-08-30] MEDS: chlordiazePOXIDE HCL 25 MG CAP PO SCH ×2 (03:50→11:15)
[2021-08-30] MEDS: SODIUM CHLORIDE 0.9% 1,000 ML IV SCH ×4 (04:00→20:00)
[2021-08-30 05:00] VITALS: BP 117/63
[2021-08-30 05:40] LABS: Basophils # (auto) 0.1 10 ^3/uL (0-0.2); Basophils % (auto) 1.3 % (0.0-2.0); Eosinophils # (auto) 0 10 ^3/uL (0-0.8); Hematocrit 34.1 % (36.0-46.0); Hemoglobin 11.2 g/dL (12.2-16.2); Lymphocytes # (auto) 0.8 10 ^3/uL (0.4-5.4); Mean Corpuscular Hemoglobin 28.5 pg (28.0-32.0); Mean Corpuscular Hgb Conc. 32.9 g/dL (32.0-36.0); Mean Corpuscular Volume 86.7 fL (80.0-100.0); Monocytes # (auto) 0.4 10 ^3/uL (0-1.3); Monocytes % (auto) 7.4 % (0.0-12.0); Neutrophils # (auto) 3.9 10 ^3/uL (1.6-8.6); Neutrophils % (auto) 75.3 % (37.0-80.0); Nucleated Red Blood Cells % 0.1 %; Red Blood Cells 3.93 10^6/uL (4.0-5.20); Red Cell Distribution Width 17.9 % (11.8-14.3); White Blood Cell 5.2 10^3/uL (4.4-10.8)
[2021-08-30 05:58] LABS: INR 1.03 (0.9-1.15); Partial Thromboplastin Time 24.2 sec (23.6-33.0)
[2021-08-30 06:04] LABS: Albumin 3.2 g/dL (3.4-5.0); Calcium 7.9 mg/dL (8.5-10.1); Magnesium 2.9 mg/dL (1.6-2.6); Potassium 3.7 mmol/L (3.5-5.1)
[2021-08-30] MEDS: InsuLIN REG 1unit/0.01ml Soln (100units/ml) SC SCH ×4 (06:06→22:04)
[2021-08-30] MEDS: LEVOTHYROXINE SODIUM 25 MCG TAB PO SCH (06:07)
[2021-08-30] MEDS: SUCRALFATE 1 GM/10 ML ORAL SUSP PO SCH ×4 (06:07→22:02)
[2021-08-30] MEDS: metroNIDAZOLE 500MG/100ML 100 ML IV SCH ×3 (06:08→22:37)
[2021-08-30 06:09] LABS: BUN/Creatinine Ratio 5.8; Bilirubin, Total 0.7 mg/dL (0.2-1.0); Phosphorus 2.2 mg/dL (2.5-4.90); Total Protein 6.2 g/dL (6.4-8.2)
[2021-08-30] MEDS: D5W/ SOD CHL 0.9%/KCL 20MEQ 1,000 ML IV SCH (06:58)
[2021-08-30] MEDS: cefTRIAXone 1GM/50ML D5W 50 ML IV SCH (09:27)
[2021-08-30] MEDS: PANCREATIC ENZYMES 4200 UNIT CAP PO SCH ×3 (09:27→17:17)
[2021-08-30] MEDS: ENOXAPARIN SOD 40 MG/0.4 ML SYRINGE SC SCH (09:28)
[2021-08-30] MEDS: THIAMINE HCL 100 MG TAB PO SCH (09:28)
[2021-08-30] MEDS: FOLIC ACID 1 MG TAB PO SCH (09:28)
[2021-08-30] MEDS: SERTRALINE HCL 50 MG TAB PO SCH (09:29)
[2021-08-30] MEDS: MULTIPLE VITAMINS W/ MINERALS TAB PO SCH (09:29)
[2021-08-30] MEDS: MORPHINE SULFATE INJECTION 2 MG/ML SYRG IV PRN (09:30)
[2021-08-30] MEDS ORDERED: PANTOPRAZOLE 40 MG/10 ML VIAL INJ IV SCH (10:00)
[2021-08-30] MEDS ORDERED: chlordiazePOXIDE HCL 25 MG CAP PO SCH (10:00)
[2021-08-30] MEDS ORDERED: ASPirin 81 mg TAB PO SCH (10:00)
[2021-08-30] MEDS ORDERED: SODIUM CHLORIDE 0.9% 1,000 ML IV ONE (11:45)
[2021-08-30 12:25] LABS: Urine Bacteria NONE SEEN /hpf (None Seen); Urine Blood Negative /uL (Negative); Urine Mucus FEW (None Seen); Urine Specific Gravity 1.031 (1.001-1.035); Urine WBC 10 /hpf (0 - 5)
[2021-08-30 12:37] LABS: Amphetamine Screen, Urine NEGATIVE (NEGATIVE); Barbiturate Scree,Urine NEGATIVE (NEGATIVE); Benzodiazephine Screen, Urine POSITIVE (NEGATIVE); Cannabinoid Screen, Urine NEGATIVE (NEGATIVE); Cocaine Screen, Urine NEGATIVE (NEGATIVE); Opiate Scree,Urine POSITIVE (NEGATIVE); Phencyclidine Screen, Urine NEGATIVE (NEGATIVE)
[2021-08-30] MEDS: GABAPENTIN 300 MG CAP PO SCH ×2 (14:44→22:03)
[2021-08-30 22:00] VITALS: BP 127/72
[2021-08-30] MEDS: ATORVASTATIN 20 MG TAB PO SCH (22:02)
[2021-08-30] MEDS: PANTOPRAZOLE 40 MG/10 ML VIAL INJ IV SCH (22:03)
[2021-08-30] MEDS: HYDROcodone-ACET 5/325MG TAB PO PRN (22:52)
[2021-08-31] MEDS: SODIUM CHLORIDE 0.9% 1,000 ML IV SCH ×3 (03:45→18:53)
[2021-08-31 05:00] VITALS: BP 118/73
[2021-08-31] MEDS: GABAPENTIN 300 MG CAP PO SCH ×3 (05:08→21:33)
[2021-08-31] MEDS: InsuLIN REG 1unit/0.01ml Soln (100units/ml) SC SCH ×4 (06:16→22:00)
[2021-08-31] MEDS: LEVOTHYROXINE SODIUM 25 MCG TAB PO SCH (06:16)
[2021-08-31] MEDS: ACCU-CHEK COMFORT CURVE STRIP VI SCH ×4 (06:16→22:18)
[2021-08-31] MEDS: SUCRALFATE 1 GM/10 ML ORAL SUSP PO SCH ×4 (06:16→21:32)
[2021-08-31] MEDS: metroNIDAZOLE 500MG/100ML 100 ML IV SCH ×3 (06:16→21:32)
[2021-08-31 06:24] LABS: Basophils # (auto) 0 10 ^3/uL (0-0.2); Basophils % (auto) 1.2 % (0.0-2.0); Eosinophils # (auto) 0.1 10 ^3/uL (0-0.8); Eosinophils % (auto) 1.6 % (0.0-7.0); Hematocrit 34.7 % (36.0-46.0); Hemoglobin 11.2 g/dL (12.2-16.2); Lymphocytes # (auto) 1.2 10 ^3/uL (0.4-5.4); Lymphocytes % (auto) 32.9 % (10.0-50.0); Mean Corpuscular Hemoglobin 28.4 pg (28.0-32.0); Mean Corpuscular Hgb Conc. 32.2 g/dL (32.0-36.0); Mean Corpuscular Volume 88.4 fL (80.0-100.0); Monocytes # (auto) 0.3 10 ^3/uL (0-1.3); Monocytes % (auto) 7.5 % (0.0-12.0); Neutrophils # (auto) 2.1 10 ^3/uL (1.6-8.6); Neutrophils % (auto) 56.8 % (37.0-80.0); Nucleated Red Blood Cells % 0.2 %; Red Blood Cells 3.93 10^6/uL (4.0-5.20); Red Cell Distribution Width 19.1 % (11.8-14.3); White Blood Cell 3.6 10^3/uL (4.4-10.8)
[2021-08-31 06:32] LABS: Potassium 3.5 mmol/L (3.5-5.1)
[2021-08-31 06:41] LABS: BUN/Creatinine Ratio 8.2; Calcium 8.5 mg/dL (8.5-10.1)
[2021-08-31] MEDS: PANCREATIC ENZYMES 4200 UNIT CAP PO SCH ×3 (08:00→17:25)
[2021-08-31 08:15] VITALS: BP 108/67
[2021-08-31 09:00] VITALS: BP 108/67
[2021-08-31] MEDS: cefTRIAXone 1GM/50ML D5W 50 ML IV SCH (09:09)
[2021-08-31] MEDS: FOLIC ACID 1 MG TAB PO SCH (09:45)
[2021-08-31] MEDS: THIAMINE HCL 100 MG TAB PO SCH (09:45)
[2021-08-31] MEDS: SERTRALINE HCL 50 MG TAB PO SCH (09:45)
[2021-08-31] MEDS: ENOXAPARIN SOD 40 MG/0.4 ML SYRINGE SC SCH (09:45)
[2021-08-31] MEDS: PANTOPRAZOLE 40 MG/10 ML VIAL INJ IV SCH ×2 (09:45→21:32)
[2021-08-31] MEDS: MULTIPLE VITAMINS W/ MINERALS TAB PO SCH (09:45)
[2021-08-31] MEDS ORDERED: chlordiazePOXIDE HCL 25 MG CAP PO SCH (10:00)
[2021-08-31 13:00] VITALS: BP 126/82
[2021-08-31] MEDS: LORazepam 0.5 MG TAB PO PRN (14:24)
[2021-08-31 17:11] VITALS: BP 121/78
[2021-08-31] MEDS ORDERED: SERTRALINE HCL 50 MG TAB PO ONE (17:15)
[2021-08-31] MEDS: ATORVASTATIN 20 MG TAB PO SCH (21:32)
[2021-08-31 22:00] VITALS: BP 136/84
[2021-09-01] MEDS: METOCLOPRAMIDE HCL 5MG/ml INJ 2ml VIAL IV PRN (01:24)
[2021-09-01] MEDS: LORazepam 0.5 MG TAB PO PRN ×2 (01:25→22:16)
[2021-09-01 05:00] VITALS: BP 124/80
[2021-09-01 05:43] LABS: Basophils # (auto) 0 10 ^3/uL (0-0.2); Basophils % (auto) 0.7 % (0.0-2.0); Eosinophils # (auto) 0.1 10 ^3/uL (0-0.8); Eosinophils % (auto) 2.9 % (0.0-7.0); Hematocrit 36.3 % (36.0-46.0); Hemoglobin 11.7 g/dL (12.2-16.2); Lymphocytes # (auto) 1.2 10 ^3/uL (0.4-5.4); Lymphocytes % (auto) 29.5 % (10.0-50.0); Mean Corpuscular Hemoglobin 28.6 pg (28.0-32.0); Mean Corpuscular Hgb Conc. 32.3 g/dL (32.0-36.0); Mean Corpuscular Volume 88.6 fL (80.0-100.0); Monocytes # (auto) 0.4 10 ^3/uL (0-1.3); Monocytes % (auto) 8.7 % (0.0-12.0); Neutrophils # (auto) 2.4 10 ^3/uL (1.6-8.6); Neutrophils % (auto) 58.2 % (37.0-80.0); Nucleated Red Blood Cells % 0.1 %; Red Cell Distribution Width 18.3 % (11.8-14.3); White Blood Cell 4.1 10^3/uL (4.4-10.8)
[2021-09-01] MEDS: SODIUM CHLORIDE 0.9% 1,000 ML IV SCH ×3 (05:48→19:45)
[2021-09-01 06:14] LABS: Potassium 3.9 mmol/L (3.5-5.1)
[2021-09-01] MEDS: InsuLIN REG 1unit/0.01ml Soln (100units/ml) SC SCH ×4 (06:19→22:00)
[2021-09-01] MEDS: metroNIDAZOLE 500MG/100ML 100 ML IV SCH ×3 (06:19→22:45)
[2021-09-01] MEDS: SUCRALFATE 1 GM/10 ML ORAL SUSP PO SCH ×4 (06:19→22:15)
[2021-09-01] MEDS: GABAPENTIN 300 MG CAP PO SCH ×3 (06:19→22:16)
[2021-09-01] MEDS: ACCU-CHEK COMFORT CURVE STRIP VI SCH ×4 (06:19→22:00)
[2021-09-01] MEDS: LEVOTHYROXINE SODIUM 25 MCG TAB PO SCH (06:19)
[2021-09-01 06:23] LABS: Albumin 2.7 g/dL (3.4-5.0); BUN/Creatinine Ratio 10.7; Bilirubin, Direct 0.1 mg/dL (0-0.2); Bilirubin, Total 0.3 mg/dL (0.2-1.0); Total Protein 5.3 g/dL (6.4-8.2)
[2021-09-01] MEDS ORDERED: chlordiazePOXIDE HCL 25 MG CAP PO SCH (07:00)
[2021-09-01] MEDS: PANCREATIC ENZYMES 4200 UNIT CAP PO SCH (08:00)
[2021-09-01 08:51] VITALS: BP 120/79
[2021-09-01] MEDS: MULTIPLE VITAMINS W/ MINERALS TAB PO SCH (09:28)
[2021-09-01] MEDS: FOLIC ACID 1 MG TAB PO SCH (09:28)
[2021-09-01] MEDS: THIAMINE HCL 100 MG TAB PO SCH (09:28)
[2021-09-01] MEDS: ENOXAPARIN SOD 40 MG/0.4 ML SYRINGE SC SCH (09:29)
[2021-09-01] MEDS: SERTRALINE HCL 50 MG TAB PO SCH (09:29)
[2021-09-01] MEDS: cefTRIAXone 1GM/50ML D5W 50 ML IV SCH (09:30)
[2021-09-01] MEDS: PANTOPRAZOLE 40 MG/10 ML VIAL INJ IV SCH (09:31)
[2021-09-01] MEDS ORDERED: LIDOCAINE VISCOUS 2% 15ML UD ONE (10:10)
[2021-09-01] MEDS ORDERED: diphenhdrAMINE HCL 50 MG/1 ML VL ONE (10:11)
[2021-09-01] MEDS ORDERED: MIDAZOLAM HCL 5 MG/ML-1ML VIAL ONE (10:11)
[2021-09-01] MEDS ORDERED: fentaNYL CITRATE 100 MCG/2 ML VL ONE (10:11)
[2021-09-01 13:30] VITALS: BP 129/90
[2021-09-01 16:30] VITALS: BP 132/76
[2021-09-01 17:59] VITALS: BP 132/76
[2021-09-01] MEDS ORDERED: THIA100T10 PO (18:00)
[2021-09-01] MEDS ORDERED: LEVO500T31 PO (18:00)
[2021-09-01] MEDS ORDERED: GABA300C10 PO (18:00)
[2021-09-01] MEDS ORDERED: FOLI1TAB6 PO (18:00)
[2021-09-01] MEDS ORDERED: SERT-160 PO (18:00)
[2021-09-01] MEDS ORDERED: APIX5TAB PO (18:00)
[2021-09-01] MEDS ORDERED: PANT40T PO (18:00)
[2021-09-01 22:00] VITALS: BP 126/79
[2021-09-01] MEDS: APIXABAN 5 MG TAB PO SCH (22:16)
[2021-09-01] MEDS: PANTOPRAZOLE 40 MG TAB PO SCH (22:16)
[2021-09-01] MEDS: ATORVASTATIN 20 MG TAB PO SCH (22:16)
[2021-09-02] MEDS: SODIUM CHLORIDE 0.9% 1,000 ML IV SCH ×2 (03:45→11:45)
[2021-09-02] MEDS: HYDROcodone-ACET 5/325MG TAB PO PRN ×2 (04:43→10:55)
[2021-09-02 05:00] VITALS: BP 135/84
[2021-09-02] MEDS: InsuLIN REG 1unit/0.01ml Soln (100units/ml) SC SCH ×3 (06:10→17:00)
[2021-09-02] MEDS: ACCU-CHEK COMFORT CURVE STRIP VI SCH ×3 (06:10→17:00)
[2021-09-02] MEDS: SUCRALFATE 1 GM/10 ML ORAL SUSP PO SCH ×3 (06:15→17:00)
[2021-09-02] MEDS: LEVOTHYROXINE SODIUM 25 MCG TAB PO SCH (06:16)
[2021-09-02] MEDS: GABAPENTIN 300 MG CAP PO SCH ×2 (06:16→14:00)
[2021-09-02] MEDS: metroNIDAZOLE 500MG/100ML 100 ML IV SCH ×2 (06:19→14:00)
[2021-09-02 06:50] LABS: Basophils # (auto) 0 10 ^3/uL (0-0.2); Basophils % (auto) 0.7 % (0.0-2.0); Eosinophils # (auto) 0.1 10 ^3/uL (0-0.8); Eosinophils % (auto) 3.5 % (0.0-7.0); Hematocrit 34.6 % (36.0-46.0); Hemoglobin 11.5 g/dL (12.2-16.2); Lymphocytes # (auto) 0.9 10 ^3/uL (0.4-5.4); Lymphocytes % (auto) 28.7 % (10.0-50.0); Mean Corpuscular Hemoglobin 29.3 pg (28.0-32.0); Mean Corpuscular Hgb Conc. 33.4 g/dL (32.0-36.0); Mean Corpuscular Volume 87.7 fL (80.0-100.0); Monocytes # (auto) 0.3 10 ^3/uL (0-1.3); Monocytes % (auto) 9.2 % (0.0-12.0); Neutrophils # (auto) 1.9 10 ^3/uL (1.6-8.6); Neutrophils % (auto) 57.9 % (37.0-80.0); Nucleated Red Blood Cells % 0.1 %; Red Blood Cells 3.94 10^6/uL (4.0-5.20); Red Cell Distribution Width 18.9 % (11.8-14.3); White Blood Cell 3.3 10^3/uL (4.4-10.8)
[2021-09-02 07:04] LABS: BUN/Creatinine Ratio 12.9; Calcium 7.9 mg/dL (8.5-10.1); Potassium 3.5 mmol/L (3.5-5.1)
[2021-09-02] MEDS: cefTRIAXone 1GM/50ML D5W 50 ML IV SCH (08:00)
[2021-09-02 09:09] VITALS: BP 125/75
[2021-09-02] MEDS: PANTOPRAZOLE 40 MG TAB PO SCH (10:00)
[2021-09-02] MEDS: MULTIPLE VITAMINS W/ MINERALS TAB PO SCH (10:00)
[2021-09-02] MEDS: APIXABAN 5 MG TAB PO SCH (10:00)
[2021-09-02] MEDS: FOLIC ACID 1 MG TAB PO SCH (10:00)
[2021-09-02] MEDS: THIAMINE HCL 100 MG TAB PO SCH (10:00)
[2021-09-02] MEDS: SERTRALINE HCL 50 MG TAB PO SCH (10:00)
[2021-09-02 13:13] VITALS: BP_SYST 13; BP_SYST 131; BP_DIAS 85
[2021-09-02 17:19] VITALS: BP 131/82
== END 2021-09-02 19:10 | disposition home health service (06) | DRG 368 ==
LOC: ER 14:27 → TELE-WESTW 18:32
PROVIDERS: ADMIT Hospitalist; ATTEND Internal Medicine
PROC: 0DJ08ZZ Inspection of Upper Intestinal Tract, Via Natural or Artificial Opening Endoscopic (ICD-10-PCS; principal; 2021-09-01 12:00)
DX: K20.91 Esophagitis, unspecified with bleeding (principal); K29.21 Alcoholic gastritis with bleeding; I26.99 Other pulmonary embolism without acute cor pulmonale; J69.0 Pneumonitis due to inhalation of food and vomit; N17.0 Acute kidney failure with tubular necrosis; N13.1 Hydronephrosis with ureteral stricture, not elsewhere classified; K86.1 Other chronic pancreatitis; N39.0 Urinary tract infection, site not specified; F10.239 Alcohol dependence with withdrawal, unspecified; F33.2 Major depressive disorder, recurrent severe without psychotic features; K92.0 Hematemesis; F10.229 Alcohol dependence with intoxication, unspecified; E66.01 Morbid (severe) obesity due to excess calories; E88.81 Metabolic syndrome and other insulin resistance; Z20.822 Contact with and (suspected) exposure to COVID-19; E87.6 Hypokalemia; E03.9 Hypothyroidism, unspecified; Z68.33 Body mass index [BMI] 33.0-33.9, adult; E11.22 Type 2 diabetes mellitus with diabetic chronic kidney disease; E78.5 Hyperlipidemia, unspecified; F41.9 Anxiety disorder, unspecified; I12.9 Hypertensive chronic kidney disease with stage 1 through stage 4 chronic kidney disease, or unspecified chronic kidney disease; K44.9 Diaphragmatic hernia without obstruction or gangrene; N18.31 Chronic kidney disease, stage 3a; K75.81 Nonalcoholic steatohepatitis (NASH); Z79.899 Other long term (current) drug therapy; Z81.1 Family history of alcohol abuse and dependence; Z82.49 Family history of ischemic heart disease and other diseases of the circulatory system; Z82.61 Family history of arthritis; Z90.49 Acquired absence of other specified parts of digestive tract; K40.90 Unilateral inguinal hernia, without obstruction or gangrene, not specified as recurrent
CPT/HCPCS: 36415; 43235; 70450; 71045; 74176; 78582; 80048; 80053; 80061; 80076; 80307; 80320; 81001; 82150; 82306; 82962; 83036; 83690; 83735; 83880; 84100; 84484; 85025; 85379; 85610; 85730; 87040; 87081; 87086; 87426; 93005; 93970; 96374; 96375; C9113; G0378; J0696; J1815; J2250; J3490

== ENCOUNTER 2021-09-28 16:28 | Inpatient (IN) | payer OTHER, MEDICAID ==
[~2021-09-28] VITALS: Ht 160 cm; Wt 79.5 kg
[~2021-09-28 16:28] MED LIST changes: +APIX5TAB PO; +FOLI1TAB6 PO; +GABA300C10 PO; +LEVO500T31 PO; +PANT40T PO; +SERT-160 PO; -SERT25TA84 PO; +THIA100T10 PO
[2021-09-28 17:44] LABS: Hematocrit 43.4 % (36.0-46.0); Hemoglobin 13.9 g/dL (12.2-16.2); Mean Corpuscular Hemoglobin 27.8 pg (28.0-32.0); Mean Corpuscular Hgb Conc. 32.1 g/dL (32.0-36.0); Mean Corpuscular Volume 86.5 fL (80.0-100.0); Red Blood Cells 5.02 10^6/uL (4.0-5.20); Red Cell Distribution Width 16.9 % (11.8-14.3)
[2021-09-28 17:54] LABS: Albumin 4.3 g/dL (3.4-5.0); Calcium 9.6 mg/dL (8.5-10.1); Potassium 3.4 mmol/L (3.5-5.1)
[2021-09-28 17:56] LABS: BUN/Creatinine Ratio 4.7
[2021-09-28 17:59] LABS: Bilirubin, Total 0.7 mg/dL (0.2-1.0); Total Protein 8.6 g/dL (6.4-8.2)
[2021-09-28 18:08] LABS: Basophils % (manual) 0 (0.0-2.0); Blast Cells 0; Eosinophils % (manual) 0 (0-7); Metamyelocytes % 0; Myelocytes % 0; Promyelocytes % 0; Reactive Lymphocytes 0
[2021-09-28] MEDS ORDERED: ONDANSETRON HCL 4 MG/2 ML VIAL IV ONE (18:15)
[2021-09-28] MEDS ORDERED: GASTROGRAFIN 30 ML SOL ONE (19:41)
[2021-09-28 19:54] LABS: Band Neutrophils % (manual) 1; Lymphocytes % (manual) 15 (10.0-50.0); Monocytes % (manual) 9 (0-12)
[2021-09-28] MEDS ORDERED: PANTOPRAZOLE 40 MG/10 ML VIAL INJ IV ONE (21:30)
[2021-09-28] MEDS ORDERED: SODIUM CHLORIDE 0.9% 1,000 ML IV ONE (22:15)
[2021-09-28] MEDS ORDERED: POTASSIUM CHL 20 Meq TABLET PO ONE (22:30)
[2021-09-28 23:13] LABS: INR 0.99 (0.9-1.15); Partial Thromboplastin Time 23.2 sec (23.6-33.0)
[2021-09-29 00:20] VITALS: BP 138/81
[2021-09-29] MEDS: ONDANSETRON HCL 4 MG/2 ML VIAL IV PRN ×3 (01:13→10:35)
[2021-09-29 05:00] VITALS: BP 133/76
[2021-09-29 07:09] LABS: Basophils # (auto) 0 10 ^3/uL (0-0.2); Basophils % (auto) 0.5 % (0.0-2.0); Eosinophils # (auto) 0 10 ^3/uL (0-0.8); Hematocrit 36.4 % (36.0-46.0); Hemoglobin 12.1 g/dL (12.2-16.2); Lymphocytes # (auto) 1.6 10 ^3/uL (0.4-5.4); Lymphocytes % (auto) 17.2 % (10.0-50.0); Mean Corpuscular Hemoglobin 28.4 pg (28.0-32.0); Mean Corpuscular Hgb Conc. 33.1 g/dL (32.0-36.0); Mean Corpuscular Volume 85.8 fL (80.0-100.0); Monocytes # (auto) 0.8 10 ^3/uL (0-1.3); Monocytes % (auto) 9.1 % (0.0-12.0); Neutrophils # (auto) 6.6 10 ^3/uL (1.6-8.6); Neutrophils % (auto) 73.2 % (37.0-80.0); Red Blood Cells 4.25 10^6/uL (4.0-5.20); Red Cell Distribution Width 16.5 % (11.8-14.3)
[2021-09-29 07:11] LABS: Potassium 3.5 mmol/L (3.5-5.1)
[2021-09-29 07:21] LABS: Albumin 3.6 g/dL (3.4-5.0); BUN/Creatinine Ratio 8.1; Calcium 8.7 mg/dL (8.5-10.1); Total Protein 6.8 g/dL (6.4-8.2)
[2021-09-29] MEDS: PANTOPRAZOLE 40 MG/10 ML VIAL INJ IV SCH ×2 (10:34→22:17)
[2021-09-29 17:00] VITALS: BP 140/76
[2021-09-29] MEDS: FOLIC ACID 1 MG, MULTIPLE VITAMIN 10 ML, MAGNESIUM SULF SDV 50% 8 MEQ, THIAMINE INJ 100... INJ SCH ×5 (17:49)
[2021-09-29 20:00] VITALS: BP 116/76
[2021-09-30 06:00] VITALS: BP 116/78
[2021-09-30 07:19] LABS: Basophils # (auto) 0 10 ^3/uL (0-0.2); Basophils % (auto) 0.8 % (0.0-2.0); Eosinophils # (auto) 0.1 10 ^3/uL (0-0.8); Eosinophils % (auto) 1.7 % (0.0-7.0); Hematocrit 36.7 % (36.0-46.0); Hemoglobin 11.8 g/dL (12.2-16.2); Lymphocytes # (auto) 1.8 10 ^3/uL (0.4-5.4); Lymphocytes % (auto) 43.3 % (10.0-50.0); Mean Corpuscular Hgb Conc. 32.2 g/dL (32.0-36.0); Mean Corpuscular Volume 86.8 fL (80.0-100.0); Monocytes # (auto) 0.3 10 ^3/uL (0-1.3); Monocytes % (auto) 7.6 % (0.0-12.0); Neutrophils % (auto) 46.6 % (37.0-80.0); Nucleated Red Blood Cells % 0.1 %; Red Blood Cells 4.23 10^6/uL (4.0-5.20); Red Cell Distribution Width 16.5 % (11.8-14.3); White Blood Cell 4.3 10^3/uL (4.4-10.8)
[2021-09-30 07:40] LABS: Potassium 3.2 mmol/L (3.5-5.1)
[2021-09-30 07:48] LABS: BUN/Creatinine Ratio 9.8; Calcium 8.5 mg/dL (8.5-10.1)
[2021-09-30] MEDS ORDERED: LIDOCAINE VISCOUS 2% 15ML UD ONE (07:48)
[2021-09-30] MEDS ORDERED: MIDAZOLAM HCL 5 MG/ML-1ML VIAL ONE (07:49)
[2021-09-30] MEDS ORDERED: fentaNYL CITRATE 100 MCG/2 ML VL ONE ×2 (07:49→07:52)
[2021-09-30] MEDS ORDERED: diphenhdrAMINE HCL 50 MG/1 ML VL ONE (07:49)
[2021-09-30 09:00] VITALS: BP 118/86
[2021-09-30] MEDS: POTASSIUM CHL 10MEQ/50ML 50 ML IV SCH ×2 (09:30→10:12)
[2021-09-30] MEDS ORDERED: PANTOPRAZOLE 40 MG TAB PO SCH (10:00)
[2021-09-30] MEDS ORDERED: FOLI1TAB6 PO (10:03)
[2021-09-30] MEDS ORDERED: MULT-1058 PO (10:03)
[2021-09-30] MEDS ORDERED: THIA100T10 PO (10:03)
[2021-09-30] MEDS ORDERED: LEV25T PO (10:03)
[2021-09-30] MEDS ORDERED: PANT40T PO (10:03)
[2021-09-30 11:19] VITALS: BP 123/91
[2021-09-30] MEDS: FOLIC ACID 1 MG, MULTIPLE VITAMIN 10 ML, MAGNESIUM SULF SDV 50% 8 MEQ, THIAMINE INJ 100... INJ SCH ×5 (12:00)
[2021-09-30 13:00] VITALS: BP 137/76
[2021-09-30 17:00] VITALS: BP 120/74
== END 2021-09-30 16:10 | disposition home or self-care (01) | DRG 369 ==
LOC: ER 16:28 → OVERFLOW 22:21 → EAST 23:45
PROVIDERS: ADMIT Nurse Practitioner; ATTEND Internal Medicine
PROC: 0DB68ZX Excision of Stomach, Via Natural or Artificial Opening Endoscopic, Diagnostic (ICD-10-PCS; principal; 2021-09-30 09:15)
DX: K20.91 Esophagitis, unspecified with bleeding (principal); N17.9 Acute kidney failure, unspecified; E87.6 Hypokalemia; F10.10 Alcohol abuse, uncomplicated; K40.90 Unilateral inguinal hernia, without obstruction or gangrene, not specified as recurrent; E03.9 Hypothyroidism, unspecified; E66.9 Obesity, unspecified; K44.9 Diaphragmatic hernia without obstruction or gangrene; F32.A Depression, unspecified; F41.9 Anxiety disorder, unspecified; Z20.822 Contact with and (suspected) exposure to COVID-19; Z68.31 Body mass index [BMI] 31.0-31.9, adult; Z82.49 Family history of ischemic heart disease and other diseases of the circulatory system; Z87.11 Personal history of peptic ulcer disease; Z90.49 Acquired absence of other specified parts of digestive tract; Z71.41 Alcohol abuse counseling and surveillance of alcoholic
CPT/HCPCS: 36415; 71045; 74176; 80048; 80053; 84439; 84443; 85007; 85025; 85027; 85610; 85730; 86850; 86900; 86901; 87426; 96361; 96374; 96375; C9113; G0378; J2250; J2405

== ENCOUNTER 2021-10-11 19:57 | Emergency (ER) | payer OTHER, MEDICAID ==
[~2021-10-11] VITALS: Ht 160 cm; Wt 70.3 kg
[~2021-10-11 19:57] MED LIST changes: -APIX5TAB PO; -GABA300C10 PO; -LEVO500T31 PO; +MULT-1058 PO
[2021-10-11] MEDS ORDERED: SODIUM CHLORIDE 0.9% 1,000 ML IV ONE (20:30)
[2021-10-12] MEDS ORDERED: SODIUM CHLORIDE 0.9% 1,000 ML IV ONE (03:00)
[2021-10-12] MEDS ORDERED: ONDANSETRON ODT 4 MG TAB PO ONE (04:30)
[2021-10-12 06:30] VITALS: BP 126/77
== END 2021-10-12 07:00 | disposition home or self-care (01) ==
LOC: ER 19:57
DX: F10.10 Alcohol abuse, uncomplicated (principal); E78.5 Hyperlipidemia, unspecified; E03.9 Hypothyroidism, unspecified; Z90.49 Acquired absence of other specified parts of digestive tract; Y90.8 Blood alcohol level of 240 mg/100 ml or more
CPT/HCPCS: 36415; 80320; 96360; 96361; 99283; J7030